=== PATIENT | female | born 1990 | race Caucasian/White ===

== ENCOUNTER → 2016-06-28 | Emergency (ER) | payer BC, OTHER ==
[~2016-06-28] VITALS: Ht 157.5 cm; Wt 72.6 kg
[~2016-06-28] MED LIST: METOCLOPRAMIDE INJ 10MG/2ML VIAL (J2765) IV ONE; MONT10TA2; NS 1,000 ML IV ONE; OMEP40CA2; REGL10TA6 PO; SYNT112T2
[2016-06-28 13:18] LABS: BASO % 0.1 % (0.0-1.0); EOS # 0.1 K/mm3 (0.0-0.50); EOS % 1.2 % (0.0-3.0); LARGE UNSTAINED CELL # 0.1 K/mm3 (0.0-0.4); LARGE UNSTAINED CELL % 0.4 % (0.0-4.0); LYMPH # 0.3 K/mm3 (1.5-6.5); LYMPH % 2.4 % (24.0-44.0); MEAN CORPUSCULAR HEMOGLOBIN 29.1 pg (27.0-33.0); MEAN CORPUSCULAR HGB CONC 34.2 g/dl (32.0-36.5); MEAN CORPUSCULAR VOLUME 84.9 fl (80.0-96.0); MONO # 0.3 K/mm3 (0.0-0.8); MONO % 2.3 % (0.0-5.0); NEUTROPHILS # 10.2 K/mm3 (1.8-7.7); NEUTROPHILS % 93.6 % (36.0-66.0); PLATELET COUNT, AUTOMATED 270 k/mm3 (150-450); RED CELL DISTRIBUTION WIDTH 12.8 % (11.5-14.5); WHITE BLOOD COUNT 10.9 K/mm3 (4.0-10.0)
[2016-06-28 13:33] LABS: CONTROL LINE HCG INT CTR LINE PRESENT
[2016-06-28 13:42] LABS: ANION GAP 11 MEQ/L (8-16); BLOOD UREA NITROGEN 18 MG/DL (7-18); CALCIUM LEVEL 8.7 MG/DL (8.5-10.1); CARBON DIOXIDE LEVEL 24 MEQ/L (21-32); CHLORIDE LEVEL 110 MEQ/L (98-107); CREATININE FOR GFR 0.85 MG/DL (0.55-1.02); FREE T4 1.37 NG/DL (0.76-1.46); GLOMERULAR FILTRATION RATE > 60.0 (>60); GLUCOSE, FASTING 108 MG/DL (70-105); MAGNESIUM LEVEL 1.9 MG/DL (1.8-2.4); POTASSIUM SERUM 3.5 MEQ/L (3.5-5.1); SODIUM LEVEL 145 MEQ/L (136-145)
--- NOTE | 2016-06-28 14:00 | REP ---
Chest x-ray: Two views. History: Near syncope . Comparison study: July 18, 2003 . Findings: The lungs are well inflated and free of infiltrate. The pleural angles are sharp. The heart size is normal. Pulmonary vasculature is not increased. No significant bony abnormality is seen. EKG monitoring electrodes overlie the chest. Impression: Negative chest x-ray. Signed by Luciano Ceja MD 06/28/2016 01:52 P
[2016-06-28 14:38] VITALS: BP 113/67
--- NOTE | 2016-06-28 20:35 | ECGEPIP ---
Stationary ECG Study [facility] - ED Test Date: 2016-06-28 Pat Name: ELVIA MENDEZ Department: Room: - Gender: F Academic Manager: ct : 1990 Requested By: NIESHA ROSENTHAL Order Number: [id number] Reading MD: Natalie Paredes Measurements Intervals [place] Rate: 82 P: 13 OK: 162 QRS: 46 QRSD: 102 T: -10 QT: 395 QTc: 461 Interpretive Statements SINUS RHYTHM NONSPECIFIC T-WAVE ABNORMALITY NO PRIOR FOR COMPARISON Electronically Signed On 06-28-2016 20:35:06 EDT by Natalie Paredes
== END | disposition home or self-care (01) ==
LOC: EDUNIT# 12:21 → EDBD 12:30 → M ED 12:58
DX: R11.10 Vomiting, unspecified (principal)
CPT/HCPCS: 36415; 71020; 80048; 82550; 82553; 83735; 84439; 84443; 84703; 85025; 93005; 93041; 94760; 96361; 96374; 99285; J2765

== ENCOUNTER → 2016-08-07 | Outpatient (REF) | payer OTHER ==
[~2016-08-07] MED LIST changes: -METOCLOPRAMIDE INJ 10MG/2ML VIAL (J2765) IV ONE; -NS 1,000 ML IV ONE
[2016-08-07 14:02] LABS: MEAN CORPUSCULAR HEMOGLOBIN 30.2 pg (27.0-33.0); MEAN CORPUSCULAR HGB CONC 34.4 g/dl (32.0-36.5); MEAN CORPUSCULAR VOLUME 87.8 fl (80.0-96.0); WHITE BLOOD COUNT 5.1 K/mm3 (4.0-10.0)
[2016-08-07 14:10] LABS: ALBUMIN 3.5 GM/DL (3.2-5.2); ALBUMIN/GLOBULIN RATIO 0.92 (1.00-1.93); ALKALINE PHOSPHATASE 69 U/L (45-117); ALT/SGPT 16 U/L (12-78); ANION GAP 7 MEQ/L (8-16); AST/SGOT 11 U/L (15-37); BILIRUBIN,TOTAL 0.4 MG/DL (0.2-1.0); BLOOD UREA NITROGEN 14 MG/DL (7-18); CALCIUM LEVEL 8.7 MG/DL (8.5-10.1); CARBON DIOXIDE LEVEL 28 MEQ/L (21-32); CHLORIDE LEVEL 104 MEQ/L (98-107); CHOLESTEROL LEVEL 242 MG/DL (<200); CREATININE FOR GFR 0.69 MG/DL (0.55-1.02); GLOMERULAR FILTRATION RATE > 60.0 (>60); GLUCOSE, FASTING 79 MG/DL (70-105); POTASSIUM SERUM 4.1 MEQ/L (3.5-5.1); SODIUM LEVEL 139 MEQ/L (136-145); TOTAL PROTEIN 7.3 GM/DL (6.4-8.2); TRIGLYCERIDES LEVEL 102 MG/DL (<150)
== END ==
LOC: M LABNEURO 13:23
PROVIDERS: ATTEND Nurse Practitioner Family
DX: E03.9 Hypothyroidism, unspecified (principal)

== ENCOUNTER → 2016-08-21 | Outpatient (CLI) | payer BC, OTHER ==
[~2016-08-21] VITALS: Ht 157.5 cm; Wt 74.8 kg
[~2016-08-21] MED LIST changes: +LIDOCAINE 2% INJ 100 MG/5 ML SDV (FOR ANES.) As Ordered ONE; +MONT10TA2 PO; +NS 1,000 ML IV SCH; +ORTH1TAB4 PO; +PROPOFOL 200 MG/20 ML VIAL As Ordered ONE; +PROTPAK PO; +SYNT112T2 PO; +XYZA5TAB2 PO; +ZANTTAB PO
--- NOTE | 2016-08-21 15:03 | ROOR ---
Patient Name: Maira Forte Procedure Date: 08/21/2016 2:45 PM Date of : 1990 Age: 25 Room: [facility] Gender: Female Note Status: Finalized Procedure: Upper GI endoscopy Indications: Heartburn, Eructation Providers: Juan Antonio EDL VALLE MD Referring MD: DULCE CAN MD Requesting Provider: Medicines: Monitored Anesthesia Care Complications: No immediate complications. Procedure: Pre-Anesthesia Assessment: - The heart rate, respiratory rate, oxygen saturations, blood pressure, adequacy of pulmonary ventilation, and response to care were monitored throughout the procedure. The Endoscope was introduced through the mouth, and advanced to the second part of duodenum. The upper GI endoscopy was accomplished without difficulty. The patient tolerated the procedure well. Findings: Minimal (if any) inflammation was found in the gastric antrum. Biopsies were taken with a cold forceps for Helicobacter pylori testing. The esophagus was normal. This was biopsied with a cold forceps for evaluation of eosinophilic esophagitis. The stomach was large and compliant but was otherwise normal. sometimes seen in gastroparesis) The examined duodenum was normal. Impression: - Minimal gastritis with otherwise normal stomach. Biopsied. - Normal esophagus. Biopsied. - Normal examined duodenum. Recommendation: - Continue present medications. - Telephone endoscopist for pathology results in 2 weeks. Juan Antonio Del Valle MD Juan Antonio DEL VALLE MD 08/21/2016 3:02:21 PM This report has been signed electronically. Number of Addenda: 0 Note Initiated On: 08/21/2016 2:45 PM Estimated Blood Loss: Estimated blood loss: none.
[2016-08-21 15:25] VITALS: BP 129/67
== END ==
LOC: M OPP 13:27
PROVIDERS: ATTEND Internal Medicine Gastroenterology
DX: R12 Heartburn (principal); R14.2 Eructation; K29.70 Gastritis, unspecified, without bleeding; E03.9 Hypothyroidism, unspecified; J45.909 Unspecified asthma, uncomplicated; K21.9 Gastro-esophageal reflux disease without esophagitis; Z79.899 Other long term (current) drug therapy

== ENCOUNTER → 2016-09-16 | Outpatient (REF) | payer OTHER ==
[~2016-09-16] MED LIST changes: -LIDOCAINE 2% INJ 100 MG/5 ML SDV (FOR ANES.) As Ordered ONE; -NS 1,000 ML IV SCH; -PROPOFOL 200 MG/20 ML VIAL As Ordered ONE
== END ==
LOC: M SFHCWAGY 09:30
PROVIDERS: ATTEND Nurse Practitioner Family
DX: Z12.4 Encounter for screening for malignant neoplasm of cervix (principal)
CPT/HCPCS: 87491; 87591; G0123

== ENCOUNTER → 2016-11-09 | Outpatient (REF) | payer OTHER | LOC: M SFHCLERA 20:43 | PROVIDERS: ATTEND Physician Assistant | DX: R30.0 Dysuria (principal) ==

== ENCOUNTER → 2017-07-15 | Outpatient (REF) | payer OTHER ==
[2017-07-15 18:10] LABS: FREE T4 1.21 NG/DL (0.76-1.46); THYROID STIMULATING HORMONE 0.781 uIU/ML (0.358-3.740)
== END ==
LOC: M LABNEURO 13:00
DX: E03.9 Hypothyroidism, unspecified (principal)

== ENCOUNTER → 2017-10-21 | Outpatient (REF) | payer OTHER | LOC: M SFHCWAGY 11:30 | DX: Z12.4 Encounter for screening for malignant neoplasm of cervix (principal) ==

== ENCOUNTER → 2017-12-16 | Outpatient (REF) | payer OTHER ==
[2017-12-16 15:47] LABS: FREE T4 1.22 NG/DL (0.76-1.46); THYROID STIMULATING HORMONE 0.791 uIU/ML (0.358-3.740)
== END ==
LOC: M LABNEURO 13:03
DX: E03.9 Hypothyroidism, unspecified (principal)

== ENCOUNTER → 2018-05-17 | Outpatient (REF) | payer OTHER ==
[~2018-05-17] MED LIST changes: +ORTH1TAB10 PO; -ORTH1TAB4 PO
== END ==
LOC: M LAB REF 16:59
PROVIDERS: ATTEND Physician Assistant
DX: N30.00 Acute cystitis without hematuria (principal)

== ENCOUNTER → 2018-08-16 | Outpatient (REF) | payer OTHER ==
[2018-08-16 13:43] LABS: ALT/SGPT 19 U/L (12-78); BILIRUBIN,TOTAL 0.6 MG/DL (0.2-1.0); BLOOD UREA NITROGEN 14 MG/DL (7-18); CALCIUM LEVEL 9.1 MG/DL (8.5-10.1); CARBON DIOXIDE LEVEL 27 MEQ/L (21-32); CHLORIDE LEVEL 106 MEQ/L (98-107); CREATININE FOR GFR 0.67 MG/DL (0.55-1.30); FREE T4 1.33 NG/DL (0.76-1.46); GLOMERULAR FILTRATION RATE > 60.0 (>60); GLUCOSE, FASTING 80 MG/DL (70-100); POTASSIUM SERUM 4.2 MEQ/L (3.5-5.1); SODIUM LEVEL 138 MEQ/L (136-145); THYROID STIMULATING HORMONE 0.716 uIU/ML (0.358-3.740); TOTAL PROTEIN 7.3 GM/DL (6.4-8.2)
[2018-08-16 13:44] LABS: TOTAL 25(OH) VITAMIN D 32.3 NG/ML (30.0-100.0)
[2018-08-16 13:45] LABS: HEMOGLOBIN A1c 4.9 %
== END ==
LOC: M LABNEURO 10:46
PROVIDERS: ATTEND Family Medicine
DX: E03.9 Hypothyroidism, unspecified (principal); E55.9 Vitamin D deficiency, unspecified

== ENCOUNTER → 2019-08-29 | Outpatient (REF) | payer OTHER ==
[~2019-08-29] MED LIST changes: -MONT10TA2; -MONT10TA2 PO; +MONT10TA4; +MONT10TA4 PO; -OMEP40CA2; +OMEP40CA97; +ZANT150T40 PO; -ZANTTAB PO
[2019-08-29 15:21] LABS: MEAN CORPUSCULAR HEMOGLOBIN 30.5 pg (27.0-33.0); MEAN CORPUSCULAR HGB CONC 34.1 g/dl (32.0-36.5); MEAN CORPUSCULAR VOLUME 89.3 fl (80.0-96.0); PLATELET COUNT, AUTOMATED 328 10^3/uL (150-450); RED BLOOD COUNT 4.59 10^6/uL (4.00-5.40); WHITE BLOOD COUNT 10.2 10^3/uL (4.0-10.0)
[2019-08-29 15:51] LABS: FREE T4 1.29 NG/DL (0.76-1.46)
[2019-08-29 16:33] LABS: HIV 1&2 SCREEN CENTAUR NEGATIVE (NEGATIVE)
[2019-08-29 17:08] LABS: CHLAMYDIA DNA AMPLIFICATION NEGATIVE (NEGATIVE); GC DNA AMPLIFICATION NEGATIVE (NEGATIVE)
[2019-08-30 09:19] LABS: HEPATITIS B SURFACE ANTIGEN NEGATIVE (NEGATIVE)
[2019-08-30 09:48] LABS: HEPATITIS C VIRUS ABY INDEX 0.1 INDEX (<0.8)
== END ==
LOC: M PLALAB 13:40
PROVIDERS: ATTEND Advanced Practice Midwife
DX: Z34.01 Encounter for supervision of normal first pregnancy, first trimester (principal)

== ENCOUNTER → 2019-10-03 | Outpatient (CLI) | payer OTHER | LOC: M PLALAB 10:57 | PROVIDERS: ATTEND Advanced Practice Midwife | DX: Z34.02 Encounter for supervision of normal first pregnancy, second trimester (principal); Z36.89 Encounter for other specified antenatal screening ==

== ENCOUNTER → 2019-10-31 | Outpatient (CLI) | payer OTHER ==
--- NOTE | 2019-10-31 14:33 | REP ---
Clinical: Abnormal cardiac activity. Comparison: None . Findings: Examination demonstrates a single live intrauterine in transverse (head to maternal right) presentation. motion is identified by technologist. Placenta is noted anterior and grade I without evidence for placenta previa or abruption. Amniotic fluid volume is normal. Cervix measures 3.3 cm in length and appears closed. No evidence for nuchal cord. Gestational age by LMP 19 weeks 3 days with IONA 03/23/2020 . Gestational age by current measurements 18 weeks to date with IONA 03/31/2020 . FHR equals 132 beats per minute. Estimated weight 257 grams ( 25th percentile based on age by LMP ). Anatomical assessment demonstrates normal structures including cranium, cerebellum/posterior fossa, diaphragm, stomach, cord insertion/three-vessel cord, kidneys/bladder, spine, and extremities. Impression: Single live intrauterine in transverse lie demonstrating appropriate interval growth. Limited anatomical assessment due to lie and maternal body habitus appears relatively normal and without abnormality. Electronically Signed by John Galindo MD 10/31/2019 02:25 P
== END ==
LOC: M WHC 10:43
PROVIDERS: ATTEND Advanced Practice Midwife
DX: O36.8392 Maternal care for abnormalities of the fetal heart rate or rhythm, unspecified trimester, fetus 2 (principal); Z3A.19 19 weeks gestation of pregnancy

== ENCOUNTER → 2019-12-07 | Outpatient (CLI) | payer OTHER ==
--- NOTE | 2019-12-26 17:31 | REP ---
OBSTETRIC SONOGRAPHY HISTORY: Supervision of and follow-up anatomy. face and outflow tracts. FINDINGS: Scanning through the gravid uterus demonstrates a viable single intrauterine gestation in a transverse, head to the maternal right lie. motion is observed and heart rate is recorded at 127 beats per minute. Amniotic fluid is subjectively normal. An anterior grade 0 placenta is seen without evidence of placenta previa or abruption. Closed cervical length measured transabdominally is 3.8 cm. Right and left ventricular cardiac outflow tract views, facial profile, nose, and lips are seen today and are felt to be unremarkable. BIOMETRY CHART: BPD 56 mm 23 weeks 2 days Head Circumference 207 mm 22 weeks 6 days Abdominal Circumference 193 mm 24 weeks 1 day Femur Length 42 mm 23 weeks 6 days Humeral Length 38 mm 23 weeks 6 days Estimated Weight 628 g 10th percentile IMPRESSION: Viable single intrauterine gestation at 23 weeks 4 days by todays criteria. face and profile and cardiac outflow tract views are obtained today and are felt to be unremarkable. [facility]
== END ==
LOC: M WHC 14:14
PROVIDERS: ATTEND Specialist
DX: Z34.82 Encounter for supervision of other normal pregnancy, second trimester (principal)

== ENCOUNTER → 2019-12-20 | Outpatient (CLI) | payer OTHER ==
[2019-12-20 09:21] LABS: BASO % 0.3 % (0.0-1.0); EOS # 0.1 10^3/uL (0.0-0.5); EOS % 0.8 % (0.0-3.0); HEMATOCRIT 40.9 % (36.0-47.0); HEMOGLOBIN 13.8 g/dl (12.0-15.5); LYMPH # 1.6 10^3/uL (1.5-5.0); LYMPH % 14.6 % (24.0-44.0); MEAN CORPUSCULAR HEMOGLOBIN 30.7 pg (27.0-33.0); MEAN CORPUSCULAR HGB CONC 33.7 g/dl (32.0-36.5); MEAN CORPUSCULAR VOLUME 90.9 fl (80.0-96.0); MONO # 0.7 10^3/uL (0.0-0.8); MONO % 6.9 % (0.0-5.0); NEUTROPHILS # 8.2 10^3/uL (1.5-8.5); PLATELET COUNT, AUTOMATED 282 10^3/uL (150-450); WHITE BLOOD COUNT 10.7 10^3/uL (4.0-10.0)
[2019-12-20 09:40] LABS: FREE T4 1.16 NG/DL (0.76-1.46); THYROID STIMULATING HORMONE 1.2 uIU/ML (0.358-3.740)
== END ==
LOC: M LAB 07:19
PROVIDERS: ATTEND Specialist
DX: Z34.80 Encounter for supervision of other normal pregnancy, unspecified trimester (principal); Z3A.00 Weeks of gestation of pregnancy not specified
CPT/HCPCS: 36415; 82950; 84439; 84443; 85025; 86850; 86900; 86901; J2790

== ENCOUNTER → 2020-01-23 | Outpatient (REF) | payer OTHER ==
[2020-01-23 14:41] LABS: ALBUMIN 2.6 GM/DL (3.2-5.2); ALT/SGPT 15 U/L (12-78); BILIRUBIN,TOTAL 0.3 MG/DL (0.2-1.0); BLOOD UREA NITROGEN 8 MG/DL (7-18); CALCIUM LEVEL 9.3 MG/DL (8.5-10.1); CARBON DIOXIDE LEVEL 25 MEQ/L (21-32); CHLORIDE LEVEL 106 MEQ/L (98-107); CREATININE FOR GFR 0.62 MG/DL (0.55-1.30); GLOMERULAR FILTRATION RATE > 60.0 (>60); GLUCOSE, FASTING 76 MG/DL (70-100); POTASSIUM SERUM 4.6 MEQ/L (3.5-5.1); SODIUM LEVEL 138 MEQ/L (136-145); TOTAL PROTEIN 6.3 GM/DL (6.4-8.2)
== END ==
LOC: M PLALAB 09:15
PROVIDERS: ATTEND Advanced Practice Midwife
DX: L29.9 Pruritus, unspecified (principal)

== ENCOUNTER → 2020-03-01 | Outpatient (REF) | payer OTHER ==
[2020-03-01 15:04] LABS: FREE T4 1.06 NG/DL (0.76-1.46); THYROID STIMULATING HORMONE 0.596 uIU/ML (0.358-3.740)
== END ==
LOC: M PLALAB 08:44
PROVIDERS: ATTEND Specialist
DX: O99.283 Endocrine, nutritional and metabolic diseases complicating pregnancy, third trimester (principal); Z3A.00 Weeks of gestation of pregnancy not specified

== ENCOUNTER 2020-03-14 15:46 | Inpatient (IN) | payer OTHER ==
[2020-03-14] VITALS (8 sets, daily range): BP systolic 106–132; BP diastolic 60–77
[~2020-03-14] VITALS: Ht 157.5 cm; Wt 89.6 kg
[~2020-03-14 15:46] MED LIST changes: -ACET-683 PO; -IBUP80TA PO; -PREN1CHW6 PO
[2020-03-14] MEDS ORDERED: PREN1CHW6 PO (16:00)
[2020-03-14] MEDS ORDERED: miSOPROStol 50 MCG 1/2 TAB (S0191) PO ONE (17:00)
--- NOTE | 2020-03-14 17:34 | HPEPDOC ---
Obstetrical History & Physical General Date of Admission Mar 14, 2020 at 15:46 History of Present Illness 29yo G1 at 38w5d presents for IOL due to oligohydramnios and equivocal BPP. She initially presented to the office with complaints of decreased movement. She had a reactive nonstress test. Transabdominal ultrasound showed an NUHA of 4.2, BPP 6/10 Chief Complaint: Induction of labor Information Provided By: Patient Age: 29 : 1 Care Care: Good Care Dating Final EDC: Mar 23, 2020 Final EDC by: LMP LMP: Jun 17, 2019 EGA at Admission: 38 Past Medical History Past Obstetrical History : Past Obstetrical History: Primgravida NIGHT SUPERVISOR History: No pertinent history Past Medical History Medical History Hypothyroidism Surgical History: Denies/None Family History Significant Family History: No pertinent family hx Social History Marital Status: Psychosocial History: No pertinent psych hx * Smoker: non-smoker Alcohol: Denies Allergies Coded Allergies: No Known Allergies (Verified , 09/22/05) Medications Scheduled Levothyroxine Sodium (Synthroid) 112 Mcg Tab, 112 MCG PO DAILY Vit37/Iron/Folic Acid (Prenata Chewable Tablet) 1 Each Tab.chew, 1 TAB PO DAILY Physical Examination Physical Examination GENERAL: Alert and oriented times three. BREAST: . ABDOMEN: Gravid and non-tender to touch. FETUS: Is vertex (VTX) by sterile vaginal examination (SVE), fetus is vertex (VTX) by Juan Carlos. HEART RATE: Regular rate and rhythm. LUNGS: Clear to auscultation (CTA). Pertinent Laboratoy Data Blood Type: A- HIV: Negative Hepatitis B: Negative Rubella: Immune Group B Streptococcus: Negative Cystic Fibrosis: Negative Glucose Tolerance Test: 83 Anatomy Ultrasound Placenta Location: Anterior Vaginal Examination Dilation: 1cm Effacement: 30% Station: -2 Cervical Consistency: Firm Presentation: Cephalic presentation Assessment Variability: Moderate Tocometer Contractions: No Assessment/Plan Assessment 21-year-old 1 at 38 weeks 5 days with oligohydramnios. Reassuring status Admit to labor and delivery CBC, RPR, type and screen Patient and thoroughly counseled regards induction labor her diagnosis. Discussed induction labor using cytotec. Discussed other medications also procedures performed in labor delivery with couple. Patient has been verbally consented for emergency surgery, blood products, anesthesia and desires to proceed with admission Plan Admit and orient. Asset Administrator and consent. Group B Streptococcus (GBS) negative. Labs and intravenous (IV) per unit protocol. Counseled on Pitocin and induction of labor (IOL). Anticipate normal spontaneous delivery (). C-S as appropriate. CLIF PHILIPPE MD. Mar 14, 2020 17:34
[2020-03-14 17:44] LABS: HEMATOCRIT 44.3 % (36.0-47.0); HEMOGLOBIN 14.8 g/dl (12.0-15.5); MEAN CORPUSCULAR HEMOGLOBIN 29.5 pg (27.0-33.0); MEAN CORPUSCULAR HGB CONC 33.4 g/dl (32.0-36.5); MEAN CORPUSCULAR VOLUME 88.4 fl (80.0-96.0); PLATELET COUNT, AUTOMATED 291 10^3/uL (150-450); RED BLOOD COUNT 5.01 10^6/uL (4.00-5.40); WHITE BLOOD COUNT 11.3 10^3/uL (4.0-10.0)
[2020-03-14] MEDS ORDERED: miSOPROStol 50 MCG 1/2 TAB (S0191) PO SCH (21:30)
[2020-03-15] VITALS (56 sets, daily range): BP systolic 89–149; BP diastolic 50–81
--- NOTE | 2020-03-15 07:50 | IPNPDOC ---
Text Note Date of Service The patient was seen on 03/15/20. NOTE Progress Reports feeling mild cramping at present FH primarily Cat I with episodes of Cat II that resolve with position change UC mild, Q 3 minutes x 45-60 seconds SVE 05/06/3, posterior Discussed pt status with Dr Cabrera. Will have light breakfast then attempt insertion of Cooks catheter with pitocin augmentation. VS,Fishbone, I+O VS, Fishbone, I+O Laboratory Tests 03/14/20 17:25 Vital Signs Date Time Temp Pulse Resp B/P (MAP) Pulse Ox O2 Delivery O2 Flow Rate FiO2 03/15/20 06:23 60 18 107/65 (79) 03/15/20 05:39 98.0 03/14/20 19:11 98 Room Air I&O- Last 24 Hours up to 6 AM 03/15/20 06:00 Intake Total 425 ml Balance 425 ml Kerry Russell CNM Mar 15, 2020 07:50
--- NOTE | 2020-03-15 10:05 | IPNPDOC ---
Text Note Date of Service The patient was seen on 03/15/20. NOTE Progress Attempted to place Cooks catheter twice digitally and once via speculum. Unsuccessful at this time. Moderate bloody show with attempts Will start pitocin at this time as fetus didn't tolerate misoprostol Consider cooks catheter again once further descent or dilation is achieved Close monitoring of status. Currently Cat I tracing. VS,Fishbone, I+O VS, Fishbone, I+O Laboratory Tests 03/14/20 17:25 Vital Signs Date Time Temp Pulse Resp B/P (MAP) Pulse Ox O2 Delivery O2 Flow Rate FiO2 03/15/20 08:33 98.5 67 16 109/63 (78) 03/14/20 19:11 98 Room Air I&O- Last 24 Hours up to 6 AM 03/15/20 06:00 Intake Total 425 ml Balance 425 ml Kerry Russell CNM Mar 15, 2020 10:04
[2020-03-15] MEDS ORDERED: OXYTOCIN DRIP 30 UNITS in IV 1 EA IV SCH (10:15)
[2020-03-15] MEDS: LR 1,000 ML IV SCH ×3 (10:36→23:23)
--- NOTE | 2020-03-15 15:34 | IPNPDOC ---
Text Note Date of Service The patient was seen on 03/15/20. NOTE Progress Becoming uncomfortable Pitocin @ 12mu UC difficult to trace, Q 2-3 minutes FH Cat I with episodes Cat II SVE /-3, less posterior Desires IV pain medication. Ordered stadol/phenergan Dr Muniz updated. Consider cook's catheter VS,Fishbone, I+O VS, Fishbone, I+O Laboratory Tests 03/14/20 17:25 Vital Signs Date Time Temp Pulse Resp B/P (MAP) Pulse Ox O2 Delivery O2 Flow Rate FiO2 03/15/20 12:37 64 16 120/73 (89) 03/15/20 10:36 97.8 03/14/20 19:11 98 Room Air I&O- Last 24 Hours up to 6 AM 03/15/20 06:00 Intake Total 425 ml Balance 425 ml Kerry Russell CNM Mar 15, 2020 15:34
[2020-03-15] MEDS ORDERED: BUTORPHANOL 2 MG/ML INJ (J0595) IV ONE (15:45)
[2020-03-15] MEDS ORDERED: PROMETHAZINE INJ 25 MG/ML VIAL (J2550) IV ONE (15:45)
[2020-03-15] MEDS ORDERED: FENTANYL 2MCG/ML ROPIVACAINE 0.2% IN 0.9% NACL 100ML IVBAG As Ordered ONE (18:57)
[2020-03-15] MEDS: ePHEDrine SULFATE 25 MG/5 ML(5MG/ML) SYRINGE IV PRN ×3 (20:57→21:11)
[2020-03-15] MEDS ORDERED: EPIDURAL COMMENT XX SCH (21:00)
[2020-03-15] MEDS ORDERED: NALOXONE INJ 0.4MG/1ML VIAL (J2310 PER 1MG) IV PRN (21:00)
[2020-03-15] MEDS ORDERED: REFRIGERATOR IV KEYS XX PRN (21:00)
[2020-03-15] MEDS ORDERED: EPIDURAL/PCA KEYS XX PRN (21:00)
[2020-03-15] MEDS ORDERED: LACTATED RINGER'S 1000 ML IV PRN (21:00)
[2020-03-15] MEDS ORDERED: diphenhydrAMINE 50MG/ML VIAL (J1200) IV PRN (21:00)
[2020-03-15] MEDS ORDERED: ONDANSETRON 4MG/2ML VIAL IV PRN (21:00)
[2020-03-15] MEDS ORDERED: FENTANYL/ROPIVACAINE/NACL BAG 100 ML EPIDURAL SCH (21:00)
[2020-03-16] VITALS (10 sets, daily range): BP systolic 108–133; BP diastolic 54–82
[2020-03-16] MEDS ORDERED: OXYTOCIN DRIP 30 UNITS in IV 1 EA IV SCH (00:46)
[2020-03-16 00:57] LABS: CORD GAS ABE V -9.2; CORD GAS HCO3 V 17.3 MEQ/L; CORD GAS O2 SAT V 83.2 %; CORD GAS PCO2 V 39.5 mmHg; CORD GAS PH V 7.259 UNITS; CORD GAS PO2 V 45.4 mmHg; CORD GAS TCO2 V 18.5 MEQ/L
[2020-03-16] MEDS ORDERED: IBUPROFEN 600MG TAB PO PRN (01:00)
[2020-03-16] MEDS ORDERED: ACETAMINOPHEN TAB 650MG DOSE (2X325MG) PO PRN (01:00)
[2020-03-16] MEDS ORDERED: METHYLERGONOVINE MALEATE 0.2 MG TAB PO PRN (01:00)
[2020-03-16] MEDS ORDERED: MOM 30ML SUSPENSION UDC PO PRN (01:00)
[2020-03-16] MEDS ORDERED: RHOGAM 300 MCG (1500 IU) INJ (J2790) IM SCH (01:00)
[2020-03-16] MEDS ORDERED: MEASLES,MUMPS,RUBELLA VACCINE INJ (MMR-II) (90707) SC SCH (01:00)
[2020-03-16] MEDS ORDERED: BENZOCAINE 20% HEMORRHOIDAL OINTMENT 28GM TUBE TOP PRN (01:00)
[2020-03-16] MEDS ORDERED: ANUSOL HC CREAM 30GM TOP PRN (01:00)
--- NOTE | 2020-03-16 01:03 | DNPDOC ---
[facility] Delivery Note Delivery Note DATE OF DELIVERY: 03/16/2020 PREDELIVERY DIAGNOSIS: 39+0/7 weeks' gestation and labor. Oligohydramnios POST DELIVERY DIAGNOSIS: Delivered. Oligohydramnios and IUGR PROCEDURE: Spontaneous vaginal delivery. PROVIDER: Kerry Russell CNM ANESTHESIA: Epidural. ESTIMATED BLOOD LOSS: 300 mL. FINDINGS: 5 pound 0 ounce, 2280gm female , Score 7/8, nuchal cord times 1. DELIVERY SUMMARY: Patient is a 29-year-old 1 now para 1-0-0-1 who was admitted to labor and delivery for induction of labor due to oligohydramnios. She received misoprostol, pitocin and labor did ensue. She utilized an epidural for labor coping. Spontaneous rupture of membranes for scant clear fluid 2340. Fully dilated 2358. Viable female child delivered KIMMIE after reduction of loose nuchal cord at 0013. Spontaneous respirations with stimulation. Transitioned on maternal abdomen. Cord gases are pending. Cord doubly clamped and cut, to warmer for further stimulation and assessment. Apgars 7/8. Placenta victor, intact with 3v cord @ 0022. Terminal meconium noted with delivery of placenta. Fundus firmed with massage and IV pitocin bolus. EBL 300ml. Cervix, vagina and perineum inspected. Left sulcus laceration noted, repaired with 3-0 vicryl rapide. Sponge, sharp and instrument count correct. Instrument set was missing suture scissor when opened. Kerry Russell CNM Mar 16, 2020 00:58
[2020-03-16] MEDS: IBUPROFEN 800 MG TAB PO PRN ×2 (02:48→12:31)
[2020-03-16] MEDS: ACETAMINOPHEN 500 MG TAB PO PRN ×2 (05:47→19:58)
[2020-03-16] MEDS ORDERED: LEVOTHYROXINE 112MCG TABLET (0.112MG) PO SCH (09:00)
[2020-03-16] MEDS: LEVOTHYROXINE 112MCG TABLET (0.112MG) PO SCH (09:19)
[2020-03-16] MEDS: PRENATAL VITAMINS CHEWABLE TABLET PO SCH (09:19)
[2020-03-16] MEDS: DOCUSATE SODIUM 100MG CAPSULE PO PRN (19:58)
[2020-03-17] MEDS: IBUPROFEN 800 MG TAB PO PRN ×2 (02:05→10:36)
[2020-03-17 06:00] VITALS: BP 116/56
[2020-03-17] MEDS: LEVOTHYROXINE 112MCG TABLET (0.112MG) PO SCH (06:01)
[2020-03-17] MEDS: PRENATAL VITAMINS CHEWABLE TABLET PO SCH (10:36)
--- NOTE | 2020-03-17 10:45 | IPNPDOC ---
Progress Note Date of Service: Mar 17, 2020 Day#: 1 Progress Note SUBJECT: Status post . She has been ambulating, voiding spontaneously without issue and tolerating regular diet. Lochia decreasing/minimal. Patient is ambulating well. OBJECTIVE: VITAL SIGNS: Within normal limits, afebrile. Alert and oriented times three. Abdomen: Fundus firm at U-2. Soft, NTTP. ASSESSMENT: Status post uncomplicated spontaneous vaginal delivery. Vitals within normal limits, afebrile, hemodynamically stable with no evidence of infection. PLAN: Discharge to home tomorrow Tylenol and Motrin for pain. Routine instructions/precautions reviewed. Routine PP visit in 6 weeks in clinic. VS, I&O, 24H, Fishbone Vital Signs/I&O Vital Signs Date Time Temp Pulse Resp B/P (MAP) Pulse Ox O2 Delivery O2 Flow Rate FiO2 03/17/20 06:00 97.4 62 16 116/56 (76) 03/16/20 18:00 97 Room Air MAE RUEDA DO Mar 17, 2020 10:45
[2020-03-17] MEDS: ACETAMINOPHEN 500 MG TAB PO PRN (16:38)
[2020-03-17 18:00] VITALS: BP 100/63
[2020-03-17] MEDS: DOCUSATE SODIUM 100MG CAPSULE PO PRN (20:23)
[2020-03-18 00:30] VITALS: BP 127/69
[2020-03-18] MEDS: IBUPROFEN 800 MG TAB PO PRN (05:06)
[2020-03-18] MEDS: LEVOTHYROXINE 112MCG TABLET (0.112MG) PO SCH (05:44)
[2020-03-18 05:46] VITALS: BP 97/53
--- NOTE | 2020-03-18 09:40 | IPNPDOC ---
Progress Note Date of Service: Mar 18, 2020 Day#: 2 Progress Note SUBJECT: Status post . She has been ambulating, voiding spontaneously without issue and tolerating regular diet. Lochia decreasing/minimal. Patient is ambulating well. Baby in NICU; pt having anxiety about her baby's condition. Maybe would like to stay admitted for another night for continued support. OBJECTIVE: VITAL SIGNS: Within normal limits, afebrile. Alert and oriented times three. Abdomen: Fundus firm at U-2. Soft, NTTP. ASSESSMENT: Status post uncomplicated spontaneous vaginal delivery. Vitals within normal limits, afebrile, hemodynamically stable with no evidence of infection. PLAN: Discharge to home later today. or tomorrow. Tylenol and Motrin for pain. Routine instructions/precautions reviewed. Routine PP visit in 6 weeks in clinic. VS, I&O, 24H, Fishbone Vital Signs/I&O Vital Signs Date Time Temp Pulse Resp B/P (MAP) Pulse Ox O2 Delivery O2 Flow Rate FiO2 03/18/20 07:20 Room Air 03/18/20 05:46 98.5 66 18 97/53 (68) 03/18/20 00:30 99 MAE RUEDA DO Mar 18, 2020 09:40
[2020-03-18] MEDS: PRENATAL VITAMINS CHEWABLE TABLET PO SCH (10:33)
[2020-03-18] MEDS ORDERED: IBUP80TA PO (17:55)
[2020-03-18] MEDS ORDERED: ACET-683 PO (17:55)
[2020-03-18 18:00] VITALS: BP 157/78
== END 2020-03-18 18:15 | disposition home or self-care (01) | DRG 807 ==
LOC: M LDI 15:46 → M OBS 03-16 03:01
PROVIDERS: ADMIT Obstetrics & Gynecology; ATTEND Advanced Practice Midwife
PROC: 3E0P7GC Introduction of Other Therapeutic Substance into Female Reproductive, Via Natural or Artificial Opening (ICD-10-PCS; 2020-03-14)
PROC: 10E0XZZ Delivery of Products of Conception, External Approach (ICD-10-PCS; principal; 2020-03-16)
PROC: 0HQ9XZZ Repair Perineum Skin, External Approach (ICD-10-PCS; 2020-03-16)
DX: O41.03X0 Oligohydramnios, third trimester, not applicable or unspecified (principal); Z37.0 Single live birth; Z3A.38 38 weeks gestation of pregnancy; O69.81X0 Labor and delivery complicated by cord around neck, without compression, not applicable or unspecified; O70.0 First degree perineal laceration during delivery

== ENCOUNTER → 2020-03-14 | Outpatient (CLI) | payer OTHER ==
[~2020-03-14] MED LIST changes: +ACET-683 PO; +IBUP80TA PO; -MONT10TA4; -MONT10TA4 PO; +MONT5TAB2; +MONT5TAB2 PO; +PREN1CHW6 PO
--- NOTE | 2020-03-14 15:22 | REP ---
INDICATION: NO MOVEMENT, 38.5; HAVE PT WAIT IF US IS ABNORMAL. COMPARISON: 12/07/2019.. TECHNIQUE: Limited obstetric sonography. FINDINGS: Transabdominal scanning demonstrates a viable cephalic fetus. Heart rate is recorded at 155 beats per minute. The placenta is anterior and right lateral grade 2 without evidence of previa. Amniotic fluid is subjectively normal. NUHA is low, 4.4 cm (7.4-24.1). Biophysical profile score is 6 out of a possible 8 with 0 is scored for tone. IMPRESSION: Oligohydramnios. Biophysical profile score 0 for tone, 6 out of possible 8. <Electronically signed by Jose Ceja > 03/14/20 [id number]
== END ==
LOC: M RAD 14:05
PROVIDERS: ATTEND Obstetrics & Gynecology
DX: O36.8130 Decreased fetal movements, third trimester, not applicable or unspecified (principal)

== ENCOUNTER → 2020-04-25 | Outpatient (REF) | payer OTHER ==
[~2020-04-25] MED LIST changes: +ACET-683 PO; +IBUP80TA PO; +PREN1CHW6 PO
[2020-04-25 14:15] LABS: FREE T4 1.36 NG/DL (0.76-1.46); THYROID STIMULATING HORMONE 0.063 uIU/ML (0.358-3.740)
== END ==
LOC: M PLALAB 12:03
PROVIDERS: ATTEND Advanced Practice Midwife
DX: F53.0 Postpartum depression (principal)

== ENCOUNTER → 2020-05-22 | Outpatient (REF) | payer OTHER ==
[~2020-05-22] MED LIST changes: +MONT10TA10; +MONT10TA10 PO; -MONT5TAB2; -MONT5TAB2 PO
[2020-05-22 14:04] LABS: FREE T4 1.2 NG/DL (0.76-1.46); THYROID STIMULATING HORMONE 0.651 uIU/ML (0.358-3.740)
== END ==
LOC: M PLALAB 10:09
PROVIDERS: ATTEND Advanced Practice Midwife
DX: E03.9 Hypothyroidism, unspecified (principal)

== ENCOUNTER → 2020-06-21 | Outpatient (CLI) | payer OTHER ==
[2020-06-21 14:37] LABS: FREE T4 1.23 NG/DL (0.76-1.46); THYROID STIMULATING HORMONE 0.615 uIU/ML (0.358-3.740)
[2020-06-21 18:31] LABS: TOTAL 25(OH) VITAMIN D 32.4 NG/ML (30.0-100.0)
== END ==
LOC: M PLALAB 10:30
PROVIDERS: ATTEND Family Medicine
DX: E03.9 Hypothyroidism, unspecified (principal); E55.9 Vitamin D deficiency, unspecified

== ENCOUNTER → 2020-07-30 | Outpatient (REF) | payer OTHER | LOC: M SFHCWAGY 13:35 | PROVIDERS: ATTEND Advanced Practice Midwife | DX: Z12.4 Encounter for screening for malignant neoplasm of cervix (principal) ==

== ENCOUNTER → 2020-09-20 | Outpatient (CLI) | payer OTHER ==
[2020-09-20 07:15] LABS: BASO # 0.1 10^3/uL (0.0-0.2); BASO % 0.9 % (0.0-1.0); EOS # 0.1 10^3/uL (0.0-0.5); EOS % 1.6 % (0.0-3.0); HEMATOCRIT 45.2 % (36.0-47.0); HEMOGLOBIN 15.3 g/dl (12.0-15.5); LYMPH # 2.1 10^3/uL (1.5-5.0); LYMPH % 29.7 % (24.0-44.0); MEAN CORPUSCULAR HEMOGLOBIN 29.9 pg (27.0-33.0); MEAN CORPUSCULAR HGB CONC 33.8 g/dl (32.0-36.5); MEAN CORPUSCULAR VOLUME 88.3 fl (80.0-96.0); MONO # 0.6 10^3/uL (0.0-0.8); MONO % 8.5 % (2.0-8.0); NEUTROPHILS # 4.1 10^3/uL (1.5-8.5); NEUTROPHILS % 58.9 % (36.0-66.0); PLATELET COUNT, AUTOMATED 338 10^3/uL (150-450); RED BLOOD COUNT 5.12 10^6/uL (4.00-5.40)
[2020-09-20 07:45] LABS: ALBUMIN 3.4 GM/DL (3.2-5.2); ALT/SGPT 20 U/L (12-78); BILIRUBIN,TOTAL 0.4 MG/DL (0.2-1.0); BLOOD UREA NITROGEN 16 MG/DL (7-18); CARBON DIOXIDE LEVEL 26 MEQ/L (21-32); CHLORIDE LEVEL 104 MEQ/L (98-107); CREATININE FOR GFR 0.53 MG/DL (0.55-1.30); FREE T4 1.06 NG/DL (0.76-1.46); GLOMERULAR FILTRATION RATE > 60.0 (>60); GLUCOSE, FASTING 85 MG/DL (70-100); POTASSIUM SERUM 4.7 MEQ/L (3.5-5.1); SODIUM LEVEL 139 MEQ/L (136-145); THYROID STIMULATING HORMONE 0.641 uIU/ML (0.358-3.740)
[2020-09-20 07:51] LABS: TOTAL 25(OH) VITAMIN D 19.8 NG/ML (30.0-100.0)
== END ==
LOC: M LAB 06:33
PROVIDERS: ATTEND Family Medicine
DX: E03.9 Hypothyroidism, unspecified (principal); E55.9 Vitamin D deficiency, unspecified; Z13.0 Encounter for screening for diseases of the blood and blood-forming organs and certain disorders involving the immune mechanism; Z13.29 Encounter for screening for other suspected endocrine disorder

== ENCOUNTER → 2022-03-11 | Outpatient (CLI) | payer OTHER ==
[~2022-03-11] MED LIST changes: -MONT10TA10; -MONT10TA10 PO; +MONT10TA97; +MONT10TA97 PO; +OMEP40CA4; -OMEP40CA97
[2022-03-11 14:02] LABS: FREE T4 1.55 NG/DL (0.89-1.76)
[2022-03-11 14:03] LABS: THYROID STIMULATING HORMONE 0.048 uIU/ML (0.55-4.78); TOTAL 25(OH) VITAMIN D 27.6 NG/ML (20.0-100.0)
== END ==
LOC: M LAB 12:36
PROVIDERS: ATTEND Family Medicine
DX: E55.9 Vitamin D deficiency, unspecified (principal); E03.9 Hypothyroidism, unspecified

== ENCOUNTER → 2022-04-28 | Outpatient (CLI) | payer OTHER ==
[2022-04-28 10:21] LABS: BASO # 0.1 10^3/uL (0.0-0.2); BASO % 0.7 % (0.0-1.0); EOS # 0.2 10^3/uL (0.0-0.5); EOS % 2.5 % (0.0-3.0); HEMATOCRIT 44.2 % (36.0-47.0); HEMOGLOBIN 14.6 g/dl (12.0-15.5); LYMPH # 1.9 10^3/uL (1.5-5.0); LYMPH % 24.3 % (24.0-44.0); MEAN CORPUSCULAR VOLUME 90.9 fl (80.0-96.0); MONO # 0.5 10^3/uL (0.0-0.8); MONO % 6.8 % (2.0-8.0); NEUTROPHILS % 65.6 % (36.0-66.0); PLATELET COUNT, AUTOMATED 331 10^3/uL (150-450); RED BLOOD COUNT 4.86 10^6/uL (4.00-5.40); WHITE BLOOD COUNT 7.6 10^3/uL (4.0-10.0)
[2022-04-28 10:36] LABS: PERCENT SATURATION 32.3 % (13.2-45.0); THYROID STIMULATING HORMONE 4.03 uIU/ML (0.55-4.78); TOTAL 25(OH) VITAMIN D 36.3 NG/ML (20.0-100.0)
[2022-04-28 10:38] LABS: FERRITIN 115.7 NG/ML (7.3-270.7); FREE T4 1.17 NG/DL (0.89-1.76)
== END ==
LOC: M LAB 09:19
PROVIDERS: ATTEND Family Medicine
DX: E03.9 Hypothyroidism, unspecified (principal); E55.9 Vitamin D deficiency, unspecified

== ENCOUNTER → 2022-09-24 | Outpatient (CLI) | payer OTHER ==
[2022-09-24 11:20] LABS: HEMATOCRIT 38.9 % (36.0-47.0); MEAN CORPUSCULAR HEMOGLOBIN 30.4 pg (27.0-33.0); MEAN CORPUSCULAR VOLUME 84.6 fl (80.0-96.0); PLATELET COUNT, AUTOMATED 317 10^3/uL (150-450); WHITE BLOOD COUNT 6.1 10^3/uL (4.0-10.0)
[2022-09-24 11:52] LABS: ATYPICAL LYMPH 12 % (0-5); BASOPHILS 1 % (0-1); EOSINOPHILS 1 % (0-3); FREE T4 1.36 NG/DL (0.89-1.76); LYMPHOCYTES 26 % (16-44); MONOCYTES 5 % (0-5); NEUTROPHILS 54 % (28-66); PLATELET ESTIMATE NORMAL (NORMAL); THYROID STIMULATING HORMONE 1.808 uIU/ML (0.55-4.78)
[2022-09-24 11:55] LABS: TOTAL 25(OH) VITAMIN D 46.3 NG/ML (20.0-100.0)
== END ==
LOC: M LAB 10:18
PROVIDERS: ATTEND Family Medicine
DX: E03.9 Hypothyroidism, unspecified (principal); E55.9 Vitamin D deficiency, unspecified

== ENCOUNTER → 2023-07-06 | Outpatient (CLI) | payer OTHER | LOC: M PLAIMG 07:30 | PROVIDERS: ATTEND Family Medicine | DX: G43.109 Migraine with aura, not intractable, without status migrainosus (principal) ==